=== PATIENT | female | born 1995 | race Caucasian/White ===

== ENCOUNTER 2019-07-19 11:00 | Inpatient (IN) | payer OTHER ==
[~2019-07-19] VITALS: Ht 157.5 cm; Wt 85.7 kg
[~2019-07-19 11:00] MED LIST: ACET-8386 PO; ONDA-24 PO; TRAM50TA1 PO
[2019-07-19 11:10] VITALS: BP 123/67
--- NOTE | 2019-07-19 11:25 | NUR ---
PT BIB SELF C/O RUQ AND RLQ ABD PAIN, N/V/D X 0300. PT REPORTS CONSTANT PAIN THAT INCREAES WITH PALPATION AT 8/10. 3 EPISODES OF EMISES AND 2 EPISODES OF DIARRHEA TODAY. ABD SOFT, FLAT, TENDER TO TOUCH. NO URINARY COMPLAINTS. VSS. ER MD AT BEDSIDE. HX: DENIES RX: DENIES
[2019-07-19 11:54] LABS: BASOPHILS # (AUTO) 0.1 K/uL (0.00-0.22); BASOPHILS % (AUTO) 1.1 % (0.0-2.0); EOSINOPHILS # (AUTO) 0.2 K/uL (0-0.4); EOSINOPHILS % (AUTO) 2.7 % (0.0-4.0); HEMATOCRIT 37.7 % (36-48); HEMOGLOBIN 12.3 g/dL (12.0-16.0); LYMPHOCYTES # (AUTO) 2.2 K/uL (2.5-16.5); LYMPHOCYTES % (AUTO) 30.1 % (20.5-51.1); MEAN CORPUSCULAR HEMOGLOBIN 28 pg (27-31); MEAN CORPUSCULAR HGB CONC 33 g/dL (33-37); MEAN CORPUSCULAR VOLUME 84.8 fL (80-94); MONOCYTES # (AUTO) 0.5 K/uL (0.8-1.0); MONOCYTES % (AUTO) 6.8 % (1.7-9.3); NEUTROPHILS # (AUTO) 4.4 K/uL (1.8-7.7); NEUTROPHILS % (AUTO) 59.3 % (42.2-75.2); PLATELET COUNT (AUTO) 233 K/uL (140-450); RED BLOOD CELL COUNT(AUTO) 4.45 MIL/uL (4.20-5.40); RED CELL DISTRIBUTION WIDTH 15.9 % (11.6-13.7); WHITE BLOOD COUNT (AUTO) 7.4 K/uL (4.8-10.8)
[2019-07-19 12:03] LABS: ANION GAP 14.2 (8-16); CARBON DIOXIDE 24.1 mmol/L (21-32); CREATININE 0.7 mg/dL (0.6-1.3); POTASSIUM 3.3 mmol/L (3.5-5.1)
[2019-07-19 12:07] LABS: ALBUMIN 3.5 g/dL (3.4-5.0); TOTAL BILIRUBIN 0.5 mg/dL (0.0-1.0)
--- NOTE | 2019-07-19 13:15 | NUR ---
2% LIDOCAINE 2 CC FOR CEFOXITIN PER PHARMACY
[2019-07-19] MEDS ORDERED: LIDOCAINE 2% 1000 MG/50 ML VIAL INJ ONE (13:20)
[2019-07-19] MEDS ORDERED: LORazepam 2 MG/ML VIAL IM/IVP PRN (16:00)
--- NOTE | 2019-07-19 16:18 | NUR ---
DR BOWEN RE-EVALUATING
--- NOTE | 2019-07-19 16:32 | NUR ---
X RAY AT BEDSIDE
[2019-07-19 16:57] LABS: PROTHROMBIN TIME 10.1 secs (10.8-13.4)
--- NOTE | 2019-07-19 16:57 | NUR ---
PT SITTING ON EDGE OF BED, FAMILY AT BEDSIDE, VSS, PT REPORTS PAIN AT 2/10 AND ONLY INCREASES WITH PALPATION. PT WAITING FOR ADMIT TO MED/SURG, MED/SURG DOES NOT HAVE A NURSE FOR THE PT AT THIS TIME.
[2019-07-19 17:06] LABS: MAGNESIUM 1.7 mg/dL (1.8-2.4); PHOSPHORUS 2.7 mg/dL (2.5-4.9); THYROID STIMULATING HORMONE 1.5 uIU/mL (0.34-3.74)
[2019-07-19] MEDS ORDERED: ACETAMINOPHEN 325 MG TAB PO PRN (17:45)
[2019-07-19] MEDS ORDERED: DOCUSATE SODIUM 100 MG GELCAP PO PRN (17:45)
[2019-07-19] MEDS ORDERED: ONDANSETRON 4 MG/2 ML VIAL IM/IVP PRN (18:00)
[2019-07-19] MEDS ORDERED: MAG SULF 2000 MG/WATER PREMIX 50 ML IV SCH ×2 (18:00→18:15)
[2019-07-19] MEDS ORDERED: LACTOBACILLUS RHAMNOSUS GG 1 EACH CAP PO SCH (18:00)
[2019-07-19] MEDS ORDERED: HYDROcodone/APAP 5/325 MG 1 TAB TAB PO PRN (18:00)
[2019-07-19] MEDS ORDERED: PANTOPRAZOLE 40 MG INJ VIAL IVP SCH (18:00)
--- NOTE | 2019-07-19 18:04 | NUR ---
PT RESTING IN BED, MOTHER AT BEDSIDE. PT REPORTS PAIN AT 2/10 IN RIGHT ABD. VSS. PT STILL ON HOLD FOR ADMISSION DUE TO SHORT STAFFING IN MED/SURG
--- NOTE | 2019-07-19 18:25 | NUR ---
Patient will be admitted to care of [facility]. Admited to MED/SURG VIA WHEEL CHAIR W/ VSS. Will go to room 126B. Belongings list completed.
[2019-07-19 18:26] VITALS: BP 124/73
--- NOTE | 2019-07-19 18:26 | NUR ---
RECEIVED PATIENT BY A WHEELCHAIR AND REPORT GIVEN BY ER NURSE, EUGENIO, PT AOX4, AMBULATED TO THE BED, IV LINE ON RIGHT FA 22G ON SALINE LOCK, DENIES PAIN, NO SIGN OF DISTRESS NOTED, WILL CONTINUE TO MONITOR PATIENT.
[2019-07-19] MEDS ORDERED: POTASSIUM CHLORIDE 40 MEQ, LIDOCAINE MPF 1% - 5 mL VIAL 25 MG in NACL 0.9% 250 ML IV SCH (18:30)
--- NOTE | 2019-07-19 19:29 | NUR ---
ENDORSED PATIENT TO HOME HEALTH LPN NURSEVALARIE FOR CONTINUING OF CARE
[2019-07-19 20:15] VITALS: BP 119/78
--- NOTE | 2019-07-19 20:15 | NUR ---
RT CAME IN AND TAUGHT PT HOW TO USE INCENTIVE SPIROMETER. PT HAD GOOD EFFORT USING IT FOR 10X. ENCOURAGED PT TO USE IT 10X IN AN HR WHILE AWAKE. PT VERBALIZED UNDERSTANDING.
--- NOTE | 2019-07-19 20:15 | NUR ---
Admitted from ED, with chief complaint of RUQ ABDOMINAL PAIN SINCE 2AM. Pt is 23 y/o ,Female, Awake, Alert and Oriented, Cooperative. Initial assessment done. Pt denies any pain at this time unless with palpated. Vital signs checked. Plan of care discussed. Pt verbalized understanding. Pt oriented to call light, bed, phone,television, bathroom, smoking policy, visiting hours, procedures, ID bracelet on. Belongings list checked. MRSA swab collected.
[2019-07-19] MEDS: DEXT 5% /NACL 0.9% 1,000 ML IV SCH (20:45)
--- NOTE | 2019-07-19 20:50 | NUR ---
SPOKE TO RESIDENT REGARDING PT'S K RIDER ORDER. HE SAID HE'LL CHANGE IT.
[2019-07-19] MEDS ORDERED: ZOLPIDEM 5 MG TAB PO PRN (21:00)
[2019-07-19] MEDS ORDERED: KCL 20 MEQ/WATER INJ PREMIX 100 ML IV ONE (21:20)
--- NOTE | 2019-07-19 22:00 | NUR ---
SPOKE TO [facility] REGARDING THE NEED FOR URINE BEFORE HIDA SCAN. WILL COLLECT URINE SAMPLE.
--- NOTE | 2019-07-19 22:15 | NUR ---
PT ASSISTED TO THE BATHROOM. PT SAID SHE THINKS SHE HAS HER PERIOD. PT GIVEN SANITARY PAD. K RIDER STARTED ORDERED. WARM BLANKET PROVIDED. PT DENIES ANY OTHER NEEDS. CALL LIGHT W/IN REACH.
--- NOTE | 2019-07-19 23:07 | NUR ---
SPOKE TO Bevii AND INFORMED HER THE URINE SAMPLE WAS JUST SENT AND SHE SAID, "YOU KNOW I'LL PUSHED HER BACK IN 4HRS?" TOLD HER, "YES".
[2019-07-19 23:19] LABS: APPEARANCE,URINE CLEAR (CLEAR); BILIRUBIN,URINE NEGATIVE (NEGATIVE); BLOOD, URINE 3+ (NEGATIVE); COLOR,URINE YELLOW (YELLOW); LEUKOCYTE ESTERASE ,URINE TRACE (NEGATIVE); NITRITE, URINE NEGATIVE (NEGATIVE); UGLUCOSE NEGATIVE (NEGATIVE)
--- NOTE | 2019-07-19 23:45 | NUR ---
PT LEFT FOR HIDASCAN VIA WHEELCHAIR. PER FISH TRAPPER, SHE WILL CALL IF SHE NEEDS MORPHINE SO SHE CAN SEE THE PT'S GALLBLADDER.
[2019-07-20 00:19] LABS: BARBITURATE, URINE NEG. ng/ml (NEG <=200); BENZODIAZEPINE, URINE NEG. ng/mL (NEG <=200); CANNABINOID, URINE NEG. ng/mL (NEG <=50); COCAINE, URINE NEG. ng/mL (NEG <=300); OPIATE, URINE NEG. ng/mL (NEG <=2000); PHENCYCLIDINE SCREEN,URINE NEG. ng/mL (NEG <=25)
[2019-07-20 00:28] LABS: RBC,URINE 0-5 /HPF (0-5); WBC,URINE 0-5 /HPF (0-5)
--- NOTE | 2019-07-20 00:37 | NUR ---
[facility] [employer] CALLED AND SAID SHE WILL NEED THE MORPHINE DOSE IN 13MINS.
--- NOTE | 2019-07-20 00:50 | NUR ---
WENT TO [facility] MED DEPT TO GIVE MORPHINE ORDERED PER HIDA SCAN PROTOCOL.
--- NOTE | 2019-07-20 00:50 | NUR ---
[facility] TECH SAID 1MG OF MORPHINE IS NOT ENOUGH, IT HAS TO BE 2MG OF MORPHINE. TOLD HER, THAT'S WHATS ORDERED. SHE CALLED CHARGE NURSE TO NOTIFY AND THE RESIDENT WELL.
[2019-07-20] MEDS ORDERED: MORPHINE SULFATE 2 MG/ML SYR IVP ONE (00:55)
[2019-07-20] MEDS ORDERED: MORPHINE SULFATE 2 MG/ML SYR ONE (01:08)
--- NOTE | 2019-07-20 02:25 | NUR ---
SEEN PT BACK FROM CT SCAN RIGHT. IV CONNECTED AND RESUMED. PT ASKING FOR FOOD. PT REMINDED THAT SHE'S NOTHING BY MOUTH EXCEPT MEDS PER MD ORDER. PT VERBALIZED UNDERSTANDING. PT DENIES ANY OTHER NEEDS. CALL LIGHT W/IN REACH.
[2019-07-20] MEDS: MORPHINE SULFATE 2 MG/ML SYR IVP PRN (02:28)
[2019-07-20 04:05] VITALS: BP 103/53
--- NOTE | 2019-07-20 04:05 | NUR ---
SEEN PT ASLEEP. AWAKEN PT. VITAL SIGNS CHECKED. PT DENIES ANY DISCOMFORT. CALL LIGHT W/IN REACH. IVF INFUSING WELL.
--- NOTE | 2019-07-20 04:35 | NUR ---
SPOKE TO LEE ANN FROM [facility] REGARDING HIDA SCAN RESULT. SHE SAID, "RADIOLOGIST RECOMMENDED TO DO MORE TEST." INFORMED HER PT WENT TO CT SCAN RIGHT AFTER HER HIDA SCAN. TECH SAID "OK, I'LL FAX THE RESULT NOW." FAX NUMBER GIVEN.
--- NOTE | 2019-07-20 04:50 | NUR ---
NOTIFIED RESIDENT AND HAND OVER THE REPORT OF PT'S HIDA SCAN.
[2019-07-20] MEDS: DEXT 5% /NACL 0.9% 1,000 ML IV SCH ×2 (06:15→16:37)
--- NOTE | 2019-07-20 06:20 | NUR ---
PT WOKE UP. IVF INFUSING WELL. CALL LIGHT W/IN REACH. PT DENIES ANY OTHER NEEDS. PT REMAINS NPO EXCEPT MEDS FOR POSSIBLE SURGERY.
[2019-07-20 06:24] LABS: ANION GAP 10.7 (8-16); CARBON DIOXIDE 26.1 mmol/L (21-32); CREATININE 0.6 mg/dL (0.6-1.3); POTASSIUM 3.8 mmol/L (3.5-5.1)
[2019-07-20 06:32] LABS: CHOL/HDL RATIO 4.9 (1-4.5); MAGNESIUM 2.2 mg/dL (1.8-2.4); PHOSPHORUS 3.4 mg/dL (2.5-4.9)
[2019-07-20 06:36] LABS: BASOPHILS # (AUTO) 0.1 K/uL (0.00-0.22); EOSINOPHILS # (AUTO) 0.3 K/uL (0-0.4); EOSINOPHILS % (AUTO) 3.9 % (0.0-4.0); HEMATOCRIT 36.3 % (36-48); HEMOGLOBIN 12.1 g/dL (12.0-16.0); LYMPHOCYTES % (AUTO) 35.9 % (20.5-51.1); MEAN CORPUSCULAR HEMOGLOBIN 28 pg (27-31); MEAN CORPUSCULAR HGB CONC 33 g/dL (33-37); MEAN CORPUSCULAR VOLUME 84.2 fL (80-94); MONOCYTES # (AUTO) 0.7 K/uL (0.8-1.0); MONOCYTES % (AUTO) 8.2 % (1.7-9.3); NEUTROPHILS # (AUTO) 4.2 K/uL (1.8-7.7); PLATELET COUNT (AUTO) 243 K/uL (140-450); RED BLOOD CELL COUNT(AUTO) 4.31 MIL/uL (4.20-5.40); RED CELL DISTRIBUTION WIDTH 15.8 % (11.6-13.7); WHITE BLOOD COUNT (AUTO) 8.2 K/uL (4.8-10.8)
--- NOTE | 2019-07-20 07:01 | NUR ---
WILL ENDORSE TO DAYSHIFT NURSE.
--- NOTE | 2019-07-20 07:15 | NUR ---
RECEIVED REPORT FROM NIGHT RN. PT RESTING IN BED. AAOX4. NO S/S OF ACUTE DISTRESS. PT DENIES PAIN. IV SITE PATENT AND INTACT. CALL LIGHT WITHIN REACH. SAFETY MEASURES ENSURED. WILL CONTINUE TO MONITOR.
[2019-07-20 08:00] VITALS: BP 105/58
[2019-07-20 08:12] LABS: T4 (THYROXINE) 5.9 ug/dL (4.5-12.0)
--- NOTE | 2019-07-20 08:20 | NUR ---
PATIENT HAS BEEN SCREENED AND CATEGORIZED LOW NUTRITION RISK. PATIENT WILL BE SEEN WITHIN 7 DAYS OF ADMISSION. 07/26/[address]
[2019-07-20] MEDS ORDERED: LACT10CA PO (08:51)
[2019-07-20] MEDS ORDERED: HYDR-5122 PO (08:51)
[2019-07-20] MEDS ORDERED: CEPH250C16 PO (08:51)
[2019-07-20] MEDS: PANTOPRAZOLE 40 MG INJ VIAL IVP SCH (08:57)
[2019-07-20] MEDS: LACTOBACILLUS RHAMNOSUS GG 1 EACH CAP PO SCH (08:59)
--- NOTE | 2019-07-20 12:19 | NUR ---
PT RESTING IN BED. NO S/S OF ACUTE DISTRESS. PT DENIES PAIN. CALL LIGHT WITHIN REACH. SAFETY MEASURES ENSURED. WILL CONTINUE TO MONITOR.
[2019-07-20 16:00] VITALS: BP 113/71
--- NOTE | 2019-07-20 19:30 | NUR ---
RECEIVED FROM AM RN IN BED TALKING WELL WITH VISITORS. NO COMPLAINTS DONE. CALL LIGHT WITH IN REACH. CARE PLANS FOR THE NIGHT DISCUSSED WITH HER. DX. OF CHOLECYSTITIS. CARE PLANS FOR THE NIGHT DISCUSSED WITH HER . IVF SITE TO RAC #22 INFUSING WITH D5NS AT 80 ML/H. INTACT AND INFUSING WELL. REMINDED NPO MIDNIGHT FOR PLANNED PROCEDURE TOMORROW.
--- NOTE | 2019-07-20 21:40 | NUR ---
MD. MCMULLEN IN HERE AND TALKED WITH PT. RE: PROCEDURE TO BE DONE TOMORROW. ALL QUESTIONS ASKED BY PT. ANSWERED BY . NO COMPLAINTS DONE.
--- NOTE | 2019-07-21 01:23 | NUR ---
SLEEPING AT THIS TIME. NO RESTLESSNESS NOTED. IVF SITE TO RAC INTACT AND NO INFILTRATION.
[2019-07-21] MEDS: DEXT 5% /NACL 0.9% 1,000 ML IV SCH ×2 (02:06→19:45)
--- NOTE | 2019-07-21 06:44 | NUR ---
SLEPT WELL THIS SHIFT. NPO SINCE MIDNIGHT . NO COMPLAINTS OF PAIN DONE ON MY SHIFT. ABLE TO USE CALL LIGHT FOR HELP.
--- NOTE | 2019-07-21 07:35 | NUR ---
RECEIVED PT FROM SUBSTATION OPERATOR TRANSFORMING NURSECARMEN, PT IS AWAKE AND LYING ON THE BED WITH SIDE RAILS UP AND CALL LIGHT WITHIN REACH, IV LINE ON THE RT AC G. 22 WITH D5NS INFUSING AT 80ML/HR, PT DENIES PAIN AND NO SIGN OF DISTRESS NOTED. WILL MONITOR PT.
[2019-07-21 08:00] VITALS: BP 107/65
[2019-07-21] MEDS: LACTOBACILLUS RHAMNOSUS GG 1 EACH CAP PO SCH (09:26)
[2019-07-21] MEDS: PANTOPRAZOLE 40 MG INJ VIAL IVP SCH (09:27)
--- NOTE | 2019-07-21 09:28 | NUR ---
PT IS AWAKE AND FAMILY ON THE BEDSIDE, ORAL AND IV MEDICATIONS WERE GIVEN AND PT TOLERATED IT, NO SIGN OF DISTRESS NOTED AND WILL MONITOR PT.
[2019-07-21 10:25] LABS: BASOPHILS # (AUTO) 0.1 K/uL (0.00-0.22); EOSINOPHILS # (AUTO) 0.2 K/uL (0-0.4); EOSINOPHILS % (AUTO) 2.9 % (0.0-4.0); HEMATOCRIT 38.5 % (36-48); HEMOGLOBIN 12.7 g/dL (12.0-16.0); LYMPHOCYTES # (AUTO) 2.1 K/uL (2.5-16.5); LYMPHOCYTES % (AUTO) 32.5 % (20.5-51.1); MEAN CORPUSCULAR HEMOGLOBIN 28 pg (27-31); MEAN CORPUSCULAR HGB CONC 33 g/dL (33-37); MEAN CORPUSCULAR VOLUME 84.4 fL (80-94); MONOCYTES # (AUTO) 0.4 K/uL (0.8-1.0); MONOCYTES % (AUTO) 6.6 % (1.7-9.3); NEUTROPHILS # (AUTO) 3.7 K/uL (1.8-7.7); PLATELET COUNT (AUTO) 258 K/uL (140-450); RED BLOOD CELL COUNT(AUTO) 4.56 MIL/uL (4.20-5.40); RED CELL DISTRIBUTION WIDTH 15.9 % (11.6-13.7); WHITE BLOOD COUNT (AUTO) 6.5 K/uL (4.8-10.8)
[2019-07-21 10:34] LABS: ANION GAP 13.2 (8-16); CARBON DIOXIDE 25.7 mmol/L (21-32); CREATININE 0.6 mg/dL (0.6-1.3); POTASSIUM 3.9 mmol/L (3.5-5.1)
[2019-07-21 10:46] LABS: MAGNESIUM 1.9 mg/dL (1.8-2.4); PHOSPHORUS 3.1 mg/dL (2.5-4.9)
--- NOTE | 2019-07-21 13:00 | NUR ---
PT IS AWAKE WITH FAMILY ON THE BEDSIDE, PT DENIES PAIN AND NO SIGN OF DISTRESS NOTED. WILL MONITOR PT.
[2019-07-21 16:00] VITALS: BP 121/61
--- NOTE | 2019-07-21 16:20 | NUR ---
PT IS OFF THE UNIT NOW FOR A LAPAROSCOPIC CHOLECYSTECTOMY PROCEDURE.
[2019-07-21] MEDS ORDERED: DESFLURANE 240 ML BTL INH ONE (16:36)
[2019-07-21] MEDS ORDERED: PROPOFOL 200 MG/20 ML VIAL IV ONE (16:36)
[2019-07-21] MEDS ORDERED: DEXAMETHASONE 4 MG/ML VIAL ONE (16:36)
[2019-07-21] MEDS ORDERED: KETOROLAC 30 MG/ML VIAL ONE (16:36)
[2019-07-21] MEDS ORDERED: ONDANSETRON 4 MG/2 ML VIAL ONE (16:36)
[2019-07-21] MEDS: BUPIVACAINE-MPF/EPI 0.25% 30 ML VIAL INJ ONE ×2 (16:37→18:34)
[2019-07-21] MEDS ORDERED: fentaNYL 0.05 MG/ML VIAL ONE (16:49)
[2019-07-21] MEDS ORDERED: HYDROmorphone PFS 2 MG/ML SYR ONE ×2 (16:49→18:52)
[2019-07-21] MEDS ORDERED: ONDANSETRON 4 MG/2 ML VIAL IVP PRN (17:05)
[2019-07-21] MEDS: HYDROmorphone 1 MG/ML AMP IVP PRN ×4 (18:40→19:10)
--- NOTE | 2019-07-21 19:13 | NUR ---
ENDORSED PATIENT TO GLASS CUTTING MACHINE FEEDER NURSE CARMEN WITH CONTINUED OF CARE.
--- NOTE | 2019-07-21 19:30 | NUR ---
RECEIVED FROM OR PER IVELISSE . REPORT GIVEN BY TARA Crowe RN. FAMILY MEMBERS IN HERE. PT. ABLE TO VERBALIZE WITH FAMILY MEMBERS AND ME. RESIDENT INHERE TO TALK TO FAMILY . IVF SITE TO RAC INTACT AND NO INFILTRATION NOTED. SURGICAL SITE INTACT AND NO BLEEDING . PLACED PT. ON 02 AT 2LPM/NC TO KEEP O2 SAT ABOVE 90 %.
[2019-07-21 19:35] LABS: BASOPHILS # (AUTO) 0.1 K/uL (0.00-0.22); EOSINOPHILS # (AUTO) 0.1 K/uL (0-0.4); LYMPHOCYTES # (AUTO) 2.4 K/uL (2.5-16.5); MONOCYTES # (AUTO) 0.3 K/uL (0.8-1.0); WHITE BLOOD COUNT (AUTO) 17.9 K/uL (4.8-10.8)
[2019-07-21 19:41] LABS: BASOPHILS % (AUTO) 0.5 % (0.0-2.0); EOSINOPHILS % (AUTO) 0.3 % (0.0-4.0); HEMATOCRIT 37.3 % (36-48); HEMOGLOBIN 12.1 g/dL (12.0-16.0); LYMPHOCYTES % (AUTO) 13.7 % (20.5-51.1); MEAN CORPUSCULAR HEMOGLOBIN 27 pg (27-31); MEAN CORPUSCULAR HGB CONC 32 g/dL (33-37); MEAN CORPUSCULAR VOLUME 84.3 fL (80-94); MONOCYTES % (AUTO) 1.9 % (1.7-9.3); NEUTROPHILS # (AUTO) 14.9 K/uL (1.8-7.7); NEUTROPHILS % (AUTO) 83.6 % (42.2-75.2); PLATELET COUNT (AUTO) 256 K/uL (140-450); RED BLOOD CELL COUNT(AUTO) 4.43 MIL/uL (4.20-5.40); RED CELL DISTRIBUTION WIDTH 15.6 % (11.6-13.7)
[2019-07-21 19:52] LABS: ANION GAP 15.8 (8-16); CARBON DIOXIDE 21.8 mmol/L (21-32); CREATININE 0.6 mg/dL (0.6-1.3); POTASSIUM 3.6 mmol/L (3.5-5.1)
[2019-07-21 19:57] LABS: ALBUMIN 3.4 g/dL (3.4-5.0); TOTAL BILIRUBIN 0.6 mg/dL (0.0-1.0)
--- NOTE | 2019-07-21 20:20 | NUR ---
MD MCMULLEN CALLED AND INFORMED OF LATEST CHEM AND CBC RESULTS. NO FURTHER ORDERS GIVEN.
--- NOTE | 2019-07-21 21:26 | NUR ---
PT. AWAKE AT THIS TIME AND REQUESTED FOR PAIN RELIEVER. STATED THAT HER PAIN IS 8/10 . ABLE TO VERBALIZE NEEDS WELL IN JAP[place]ESE. FAMILY MEMBERS STILL HERE. REMINDED THAT SHE IS GOING HOME TONIGHT . PT. JUST CLOSED HER EYES WHEN I EXPLAINED TO HER. WILL MEDICATE REQUESTED. ENCOURGED TO DEEP BREATH .
[2019-07-21] MEDS: MORPHINE SULFATE 2 MG/ML SYR IVP PRN (21:37)
[2019-07-21 21:38] VITALS: BP 120/63
--- NOTE | 2019-07-21 21:50 | NUR ---
MEDICATED WITH MORPHINE REQUESTED AND ANTI NAUSEA MEDICATION /ZOFRAN. SURGICAL SITES TO ABDOMEN S/P LAP CHOLECYSTECTOMY INTACT AND NO BLEEDING.
--- NOTE | 2019-07-21 22:33 | NUR ---
RESIDENT MD HOPSON IN HERE TO TALK WITH PT. AND FAMILY RE:DISCHARGE TONIGHT. PT. AGREED TO GO HOME. VITAL SIGNS WITH IN NORMAL LIMITS AT THIS TIME. DISCHARGE EDUCATION POST OP EXPLAINED BY RESIDENT . APPOINTMENT WITH MD MCMULLEN ARRANGED BY RESIDENT. RESPIRATORY THERAPIST TO TEACH AND EDUCATE PT. OF SPIROMETRY USE.
[2019-07-21 22:44] VITALS: BP 111/58
--- NOTE | 2019-07-22 | NUR ---
PT. DISCHARGE TO HOME ACCOMPANIED BY MOTHER AND SPOUSE. ABLE TO WALK FROM BED TO WHEELCHAIR OUTSIDE DOOR. HAPPY GOING HOME. ALL DISCHARGE PAPER WORKS SENT WITH THEM AND EXPLAINED. REMINDED TO FOLLOW UP WITH PRIMARY PHYSICIAN AND SURGEON ORDERED. EDUCATED RE: CARE OF SURGICAL SITE AND ACTIVITY. NO COMPLAINTS DONE. NAME BAND TAKEN OUT. IVF SITE DISCONTINUED WITH TIP INTACT. WHEELED TO THE FRONT BY NURSING SECRETARY.
== END 2019-07-21 23:58 | disposition home or self-care (01) | DRG 263 ==
LOC: MED 11:00 → MMU 17:28 → OBSVTOIN 07-20 18:09
PROVIDERS: ADMIT General Practice; ATTEND General Practice
PROC: BF121ZZ Fluoroscopy of Gallbladder using Low Osmolar Contrast (ICD-10-PCS; 2019-07-21)
PROC: 0FT44ZZ Resection of Gallbladder, Percutaneous Endoscopic Approach (ICD-10-PCS; principal; 2019-07-21 16:30)
DX: K80.00 Calculus of gallbladder with acute cholecystitis without obstruction (principal); E83.42 Hypomagnesemia; E87.6 Hypokalemia; E66.9 Obesity, unspecified; N39.0 Urinary tract infection, site not specified; E86.0 Dehydration; Z68.34 Body mass index [BMI] 34.0-34.9, adult; Z71.3 Dietary counseling and surveillance
CPT/HCPCS: 96372; 99285; G0378; 36415; 71045; 74300; 76705; 78445; 80048; 80053; 80305; 81001; 81025; 82150; 83036; 83605; 83690; 83735; 83880; 84100; 84134; 84436; 84443; 84484; 85025; 85610; 85730; 86886; 86900; 86901; 87040; 87081; 87086; 93005; C1887; C9113; J0694; J0696; J1100; J1170; J1885; J2001; J2270; J2405; J2704; J3010; J3475; J3480; J3490; J7030; J7042; J7060; Q0092